=== PATIENT | male | born 1960 | race Caucasian/White ===

== ENCOUNTER 2018-06-13 15:32 | Emergency (ER) | payer OTHER ==
[~2018-06-13] VITALS: Ht 170.2 cm; Wt 122.9 kg
--- NOTE | ~2018-06-13 | EKG ---
[address] [address] ELECTROCARDIOGRAM REPORT Name: QUENTIN SANCHES [facility] [id number] Admission: 06/13/18 Attend Phys: Discharge: 06/13/18 Date of : 56 Report #: [id number] THIS REPORT FOR: //name// [facility] ED Test Date: 2018-06-13 Test Time: 17:00:14 Pat Name: QUENTIN SANCHES Department: Room: Gender: M Advertiser: VENKATA : 1960 Requested By: Dandre Cabrera Order Number: [id number] MD: Facundo Kelly Measurements Intervals [place] Rate: 68 P: 11 SC: 190 QRS: -24 QRSD: 95 T: 11 QT: 399 QTc: 425 Interpretive Statements Sinus rhythm No significant abnormality No previous ECG available for comparison Electronically Signed On 06-14-2018 8:52:10 [employer] by Facundo Kelly [email or web address] <ELECTRONICALLY SIGNED> By: Facundo Kelly MD, [facility] 06/14/18 0852 1700 1700 Facundo Kelly MD, FACC /EPI
[~2018-06-13 15:32] MED LIST: NORCO 5-325 TA1 EACH PO
[2018-06-13] MEDS ORDERED: UNICOMPLEX M TA1 TA1 PO (15:45)
[2018-06-13 16:50] LABS: ABSOLUTE NEUTROPHILS 6.9 thou/uL (1.4-8.2); BASOPHILS 0.6 % (0.0-2.0); EOSINOPHILS 0.8 % (0.0-3.0); HEMOGLOBIN 15.3 gm/dL (14.0-18.0); LYMPHOCYTES 24.3 % (24.0-44.0); MCH 29.4 pg (26.0-34.0); MCV 86.5 fL (80.0-100.0); MONOCYTES 6.6 % (1.0-8.0); PLATELET COUNT 276 thou/uL (150-400); POLYS 67.7 % (36.0-66.0); RBC 5.21 mil/uL (4.50-6.00); RDW 14.4 % (10.5-14.5); WBC 10.2 thou/uL (4.0-11.0)
[2018-06-13 16:54] LABS: ANION GAP 10 mmol/L (7-16); BUN 11 mg/dL (7-18); CALCIUM 9.3 mg/dL (8.5-10.1); CHLORIDE 101 mmol/L (98-107); CO2 29 mmol/L (21-32); CREATININE 0.8 mg/dL (0.7-1.3); GLUCOSE 110 mg/dL (74-106); POTASSIUM 3.7 mmol/L (3.5-5.1); SODIUM 140 mmol/L (136-145)
[2018-06-13 17:02] LABS: TROPONIN-I <0.06 ng/mL (<0.06)
[2018-06-13] MEDS ORDERED: ULTRAM 50MG TAB50 MG PO (18:29)
[2018-06-13] MEDS ORDERED: PROTONIX40 MG PO (18:29)
[2018-06-13] MEDS ORDERED: ZOFRAN ODT4 MG PO (18:29)
[2018-06-13] MEDS ORDERED: CARAFATE 1 GM TA1 G1 PO (18:29)
[2018-06-13 19:00] VITALS: BP 178/97
== END 2018-06-13 19:07 | disposition home or self-care (01) ==
LOC: ER 15:32
PROVIDERS: Emergency Medicine
DX: K29.70 Gastritis, unspecified, without bleeding (principal); R42 Dizziness and giddiness; I10 Essential (primary) hypertension; E78.00 Pure hypercholesterolemia, unspecified; Z87.19 Personal history of other diseases of the digestive system; Z91.041 Radiographic dye allergy status